=== PATIENT | male | born 1995 | race African-American/Black ===

== ENCOUNTER 2019-07-26 14:09 | Emergency (ER) | payer SELFPAY ==
[2019-07-26 14:14] VITALS: BP 144/82
[2019-07-26] MEDS ORDERED: CEPHALEXIN 500 MG CAPSULE PO ONE (15:41)
--- NOTE | 2019-07-26 15:41 | ER Document Report ---
ED Skin Rash/Insect Bite/Abscs - General Chief Complaint: Hand Pain Stated Complaint: FINGER PAIN Time Seen by Provider: 07/26/19 14:35 Mode of Arrival: Ambulatory Information source: Patient Notes: 23-year-old male presented to ED for a paronychia to the right index finger. He is alert oriented respirations regular and unlabored speaking in full sentences walks with a steady gait. He does have redness and swelling around the nailbed to the right index finger. He is alert oriented respirations regular and unlabored speaking in full sentences. He states he does bite his fingernails bu t he did not think he had done it in the last week. Father states yes he bites his nails all the time. TRAVEL OUTSIDE OF THE [place] IN LAST 30 DAYS: No - HPI Patient complains to provider of: Tender/swollen area Onset: Other Onset/Duration: Gradual - Several days Quality of pain: Pressure, Sharp Severity: Moderate Pain Level: 4 Skin Character: Abscess - Paronychia, Erythema Quality of rash: Painful Exacerbated by: Movement Relieved by: Denies Similar symptoms previously: Yes Recently seen / treated by doctor: Yes - Related Data Allergies/Adverse Reactions: No Known Allergies Allergy (Verified 03/29/14 15:54) Past Medical History - General Information source: Patient - Social History Smoking Status: Never Smoker Frequency of alcohol use: None Drug Abuse: None Lives with: Family Family History: Reviewed & Not Pertinent Patient has homicidal ideation: No - Past Medical History Cardiac Medical History: Reports: None Pulmonary Medical History: Reports: None EENT Medical History: Reports: None Neurological Medical History: Reports: None Endocrine Medical History: Reports: None Renal/ Medical History: Reports: None Malignancy Medical History: Reports None GI Medical History: Reports: None Musculoskeletal Medical History: Reports None Skin Medical History: Reports None Psychiatric Medical History: Reports: Hx Attention Deficit Hyperactivity Disorder, Hx Bipolar Disorder, Hx Schizoaffective Disorder, Hx Schizophrenia Traumatic Medical History: Reports: None Infectious Medical History: Reports: None Surgical Hx: Negative Past Surgical History: Reports: None - Immunizations Hx Diphtheria, Pertussis, Tetanus Vaccination: Yes Review of Systems - Review of Systems Constitutional: No symptoms reported EENT: No symptoms reported Cardiovascular: No symptoms reported Respiratory: No symptoms reported Gastrointestinal: No symptoms reported Genitourinary: No symptoms reported Male Genitourinary: No symptoms reported Musculoskeletal: No symptoms reported Skin: Other - Paronychia right index finger Hematologic/Lymphatic: No symptoms reported Neurological/Psychological: No symptoms reported -: Yes All other systems reviewed and negative Physical Exam - Vital signs Vitals: Temp Pulse Resp BP Pulse Ox 98.7 F 69 16 144/82 H 96 07/26/19 14:11 07/26/19 14:11 07/26/19 14:11 07/26/19 14:11 07/26/19 14:11 Interpretation: Normal - General General appearance: Appears well, Alert - HEENT Head: Normocephalic, Atraumatic Eyes: Normal Pupils: PERRL - Respiratory Respiratory status: No respiratory distress Chest status: Nontender Breath sounds: Normal Chest palpation: Normal - Cardiovascular Rhythm: Regular Heart sounds: Normal auscultation Murmur: No - Abdominal Inspection: Normal Distension: No distension Bowel sounds: Normal Tenderness: Nontender Organomegaly: No organomegaly - Back Back: Normal, Nontender - Extremities General upper extremity: Normal color, Normal ROM, Normal temperature General lower extremity: Normal inspection, Nontender, Normal color, Normal ROM, Normal temperature, Normal weight bearing. No: Jorge Alberto's sign Hand: Tender, No evidence of human bite, No evidence of FB, Swelling, Other - Paronychia of right index finger - Neurological Neuro grossly intact: Yes Cognition: Normal Orientation: AAOx4 [place] Coma Scale Eye Opening: Spontaneous [place] Coma Scale Verbal: Oriented [place] Coma Scale Motor: Obeys Commands [place] Coma Scale Total: 15 Speech: Normal Motor strength normal: LUE, RUE, LLE, RLE Sensory: Normal - Psychological Associated symptoms: Normal affect, Normal mood - Skin Skin Temperature: Warm Skin Moisture: Dry Skin Color: Normal Skin irregularity: Abscess - Paronychia right index finger Location of irregularity: Extremities Course - Vital Signs Vital signs: Temp Pulse Resp BP Pulse Ox 98.7 F 69 16 144/82 H 96 07/26/19 14:35 07/26/19 14:11 07/26/19 14:11 07/26/19 14:11 07/26/19 14:11 Procedures - Incision and Drainage Right Finger 2nd digit Time completed: 15:00 Type: Simple - Paronychia Anesthetic type: 1% Lidocaine mL's of anesthetic: 2 Blade size: 11 I&D procedure: Shurclens applied Incision Method: Incision made by scalpel Amount/type of drainage: Moderate amount of purulent drainage Discharge - Discharge Clinical Impression: Paronychia of right index finger Condition: Stable Disposition: HOME, SELF-CARE Additional Instructions: Paronychia You have an infection between the nail and the surrounding skin, called a paronychia. The germs infect the area after a minor skin injury, such as a hangnail. This infection is treated by releasing the pus. This is usually done by the skin from the nail. If the infection has spread underneath the nail, partial removal of the nail may be necessary. Hot-soak the area three or four times daily. Antibiotics are often given, but are not always necessary. Healing takes about a week. If pain or swelling becomes severe or if you develop fever or chills, call the doctor or return for re-examination. POST INCISION AND DRAINAGE: You have had an incision made to allow drainage of an abscess. The incision must remain open so that pus and debris can drain from the wound. If the abscess cavity is large, packing is placed. This keeps the tissues from collapsing and trapping pus inside, while the body shrinks the cavity. The packing may need to be replaced every day or two. The physician will instruct you on the packing. Keep a bulky dressing over the area. Replace it if it becomes saturated with blood or pus. Do not disturb the packing (if present). You may shower and cleanse the area with gentle soap and warm water two or three times a day. Local warmth may be soothing, and may promote faster healing. Return if you develop high fever or chills, or if you note spreading redness, increasing swelling, or increasing tenderness. CEPHALEXIN: The antibiotic you've been prescribed is a member of the cephalosporin class. This type of antibiotic covers a wide variety of infections, including those of the skin, lungs, and urinary tract. It's useful for staph infections. This antibiotic is slightly similar to the penicillin family. In rare ca ses, a person who is allergic to penicillin will also be allergic to this medication. If you have had a severe allergic reaction to penicillin, and have not taken this antibiotic since that time, notify your doctor. Antibiotics which cover many germs ("broad spectrum" antibiotics) are more likely to cause diarrhea or "yeast" infections. Women prone to vaginal yeast problems may suffer an attack after taking this antibiotic. In infants, oral thrush (white spots "stuck" on the cheek) or yeast diaper rash may result. See your doctor if these problems occur. Call at once if you develop itching, hives, shortness of breath, or lightheadedness. Epsom Salt Soaks Soak the wound area in a container of warm epsom salt water. If you can't get the wound area into a bucket or espana, use a folded towel soaked in the epsom salt solution and apply to the area. Use clean hot tap water (about the temperature of a very warm bath), mixing in about one (1) teaspoon for every pint of water. Two gallon --> 16 teaspoons Epsom Salts One gallon --> 8 teaspoons Epsom Salts Two quarts --> 4 teaspoons Epsom Salts One quart --> 2 teaspoons Epsom Salts Soak the wound for about 20 minutes while gently moving it around in the water. Repeat this four (4) times a day. FOLLOW-UP CARE: Most simple abscesses will not require a follow up visit. If you had packing placed in the abscess, remove it as instructed by the physician. If you have been referred to a physician for follow-up care, call the physicians office for an appointment as you were instructed or within the next two days. If you experience worsening or a significant change in your symptoms, return to the Emergency Department at any time for re-evaluation. Follow-up with your primary care doctor in the next 2 to 3 days to ensure that this is healing well. Prescriptions: Cephalexin Monohydrate [Keflex 500 mg Capsule] 500 mg PO Q6H 5 Days #20 capsule Forms: Elevated Blood Pressure
== END 2019-07-26 16:53 | disposition home or self-care (01) ==
LOC: ER 14:09
PROC: 0H9QXZZ Drainage of Finger Nail, External Approach (ICD-10-PCS; principal; 2019-07-26)
DX: L03.011 Cellulitis of right finger (principal)
CPT/HCPCS: 99283

== ENCOUNTER 2020-03-12 17:14 | Emergency (ER) | payer OTHER ==
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
[2020-03-12] MEDS ORDERED: IBUPROFEN 800 MG TABLET PO ONE (23:16)
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
[2020-03-13 01:39] VITALS: BP 109/65
== END 2020-03-13 01:37 | disposition home or self-care (01) ==
LOC: ER 17:14
DX: S80.01XA Contusion of right knee, initial encounter (principal); S80.811A Abrasion, right lower leg, initial encounter; S80.211A Abrasion, right knee, initial encounter; V49.50XA Passenger injured in collision with unspecified motor vehicles in traffic accident, initial encounter
CPT/HCPCS: 99283